=== PATIENT | male | born 1995 | race Caucasian/White ===

== ENCOUNTER 2023-04-02 10:29 | Emergency (ER) | payer SELFPAY ==
[2023-04-02 10:46] VITALS: TEMP 97.9
[2023-04-02 10:49] VITALS: O2SAT 100
[2023-04-02] MEDS ORDERED: Sodium Chloride 0.9% 1000 ML 1,000 ML IV STA (11:00)
[2023-04-02] MEDS ORDERED: Sodium Chloride 0.9% 1000 ML 1,000 ML ONE (11:05)
[2023-04-02 11:17] LABS: BASOPHIL % 0.4 % (0.0-0.4); Basophil (Absolute #) 0.02 x10^3/uL (0-0.4); Eosinophil % 0.4 % (0.00-5.0); Eosinophil (Absolute #) 0.02 x10^3/uL (0-0.5); Hematocrit 41.9 % (42-50); Hemoglobin 14.8 g/dL (12.5-18.0); IMMATURE GRAN # 0.02 x10^3u/L (0.00-0.03); IMMATURE GRAN % 0.4 % (0.00-0.4); Lymphocyte (Absolute #) 1.11 x10^3/uL (1.0-4.6); Lymphocytes % 21.2 % (24.0-44.0); Mean Corpuscular Hemoglobin 31.4 pg (26-32); Mean Corpuscular Hgb Concent. 35.3 g/dL (32-36); Mean Platelet Volume 10.2 fL (7.5-11.0); Monocyte (Absolute #) 0.47 x10^3/uL (0.0-1.3); Neutrophil % 68.6 % (36.0-66.0); Platelet Count 220 x10^3/uL (150-450); Red Blood Count 4.71 x10^6/uL (4.1-5.6); Red Cell Distribution Width 11.4 % (11.5-14.0); White Blood Count 5.2 x10^3/uL (4.0-10.5)
[2023-04-02 11:35] LABS: ALBUMIN 4.8 g/dL (3.5-5.0); ALKALINE PHOSPHATASE 40 U/L (38-126); BLOOD UREA NITROGEN 11 mg/dL (9-20); CHLORIDE 101 mmol/L (98-107); Calcium 9.3 mg/dL (8.4-10.2); Carbon Dioxide 27 mmol/L (22-30); Creatinine 1 0.81 mg/dL (0.66-1.25); EST GLOMERULAR FILTRATION RATE > 60.0 ML/MIN; Glucose 96 mg/dL (74-106); SGOT/AST 27 U/L (17-59); SGPT/ALT 19 U/L (0-50); SODIUM 139 mmol/L (137-145); Total Protein 7.5 g/dL (6.3-8.2)
--- NOTE | 2023-04-02 11:35 | XRAY ---
Indication: Syncope. Comparison: None Portable apical lordotic chest hyperinflated and clear with a few incidental tiny calcified granulomas. Heart and mediastinal structures within normal limits. Bony thorax intact. Impression: Nonacute hyperinflated chest with incidental old granulomatous disease.
--- NOTE | 2023-04-02 12:09 | ERPHSYRPT ---
- History of Present Illness Time Seen by Provider: 04/02/23 11:21 Source: patient Exam Limitations: no limitations Patient Subjective Stated Complaint: Patient was at work at [employer][1] participating in a self-defense course when he "blacked out." Patient reports that he became a bit dizzy, had some "tunnel vision" like everything was far away with ringing in his ears. Then he remembers his instructors around him trying to get him to sit down. States he didn't fall, his partner in the course kept him from falling. Triage Nursing Assessment: Patient ambulated back to ER without difficulties. He is alert and oriented. No SOB. Skin tone normal. Patient states his is a bit anxious at this time due to uncertaintly of what happened to him. He denies any pain. He also denies any current dizziness, vision changes, or nausea. Denies any recent falls or head trauma. Physician History: 28 years old healthy male presented in the ER with chief complaint of syncopal episode prior to arrival while practicing self-defense exercise at [facility]. Patient reports he started feeling dizzy lightheaded, tunnel vision, ringing in the ears immediately before he was passing out and woke up with his instructors around. It was for few seconds and patient did not hit his head as it was held by one of his friend and slowly brought him down. Patient is back to his baseline. Denies any chest pain palpitations or shortness of breath before or after this episode. Does report having similar episode many years ago. Denies any alcohol or drug use. Does not take any medications. Denies any numbness tingling or focal weakness. No difficulty speech or visual disturbance reported. Allergies/Adverse Reactions: No Known Drug Allergies Allergy (Verified 04/02/23 10:35) Home Medications: No Reportable Medications [No Reported Medications] 04/02/23 [History] Hx Tetanus, Diphtheria Vaccination/Date Given: Yes Hx Influenza Vaccination/Date Given: No Immunizations Up to Date: Yes Travel Risk - International Travel Have you traveled outside of the country in past 3 weeks: No - Coronavirus Screening Are you exhibiting any of the following symptoms?: No Close contact with a COVID-19 positive Pt in past 14-21 Days: No - Vaccine Status Have you recieved a Covid-19 vaccination: No - Review of Systems Constitutional: No Symptoms Eyes: No Symptoms Ears, Nose, & Throat: No Symptoms Respiratory: No Symptoms Cardiac: No Symptoms Abdominal/Gastrointestinal: No Symptoms Genitourinary Symptoms: No Symptoms Musculoskeletal: No Symptoms Neurological: Dizziness Psychological: No Symptoms Endocrine: No Symptoms Hematologic/Lymphatic: No Symptoms Immunological/Allergic: No Symptoms - Past Medical History Pertinent Past Medical History: Yes Musculoskeletal History: Fractures Psycho-Social History: Depression - Past Surgical History Past Surgical History: Yes Other Surgical History: PINS IN RIGHT WRIST - Social History Smoking Status: Never smoker Exposure to second hand smoke: No Drug Use: none Patient Lives Alone: No - Nursing Vital Signs Nursing Vital Signs: Initial Vital Signs Temperature 97.9 F 04/02/23 10:30 Pulse Rate 63 04/02/23 10:30 Respiratory Rate 19 04/02/23 10:30 Blood Pressure 140/104 04/02/23 10:30 O2 Sat by Pulse Oximetry 99 04/02/23 10:30 Pain Scale Pain Intensity 0 - Physical Exam General Appearance: no apparent distress, alert, anxiety Eye Exam: PERRL/EOMI, eyes nml inspection Ears, Nose, Throat Exam: normal ENT inspection, TMs normal, pharynx normal, moist mucous membranes Neck Exam: normal inspection, non-tender, supple, full range of motion, No meningismus Respiratory Exam: normal breath sounds, lungs clear, No chest tenderness Cardiovascular Exam: regular rate/rhythm, normal heart sounds Gastrointestinal/Abdomen Exam: soft, normal bowel sounds, No tenderness, No distention, No guarding Extremity Exam: normal inspection, normal range of motion Neurologic Exam: alert, oriented x 3, cooperative, barkeep II-XII nml as tested, nml cerebellar function, nml station & gait, sensation nml, No normal mood/affect (Anxious), No motor deficits, No sensory deficit, No facial droop Skin Exam: normal color SpO2 Interpretation: normal SpO2: 100 O2 Delivery: Room Air - Course EKG Interpreted by Me: RATE (64), Sinus Rhythm, NORMAL AXIS, NORMAL INTERVALS, NORMAL QRS Ordered Tests: Active Orders 24 hr Category Date Time Status CHEST 1 VIEW (PORTABLE) Stat Exams 04/02/23 11:08 Completed CBC W DIFF Stat Lab 04/02/23 11:14 Completed CMP Stat Lab 04/02/23 11:14 Completed Lactic Acid Stat Lab 04/02/23 11:07 Completed MAG [MAGNESIUM] Stat Lab 04/02/23 11:14 Completed TROPONIN Q4H Lab 04/02/23 11:14 Completed Medication Summary Discontinued Medications Generic Name Dose Route Start Last Admin Trade Name Joe PRN Reason Stop Dose Admin Sodium Chloride 1,000 mls @ 999 mls/hr 04/02/23 11:00 04/02/23 12:13 Sodium Chloride 0.9% 1000 Ml IV 04/02/23 12:00 Infused .Q1H1M STA Infusion Sodium Chloride Confirm 04/02/23 11:05 Sodium Chloride 0.9% 1000 Ml Administered 04/02/23 11:06 Dose 1,000 mls @ ud .ROUTE .STK-MED ONE Lab/Rad Data: Laboratory Result Diagrams 04/02/23 11:14 04/02/23 11:14 Laboratory Results 04/02/23 04/02/23 04/02/23 Range/Units 11:14 11:14 11:14 WBC (4.0-10.5) x10^3/uL RBC (4.1-5.6) x10^6/uL Hgb (12.5-18.0) g/dL Hct (42-50) % MCV (78-100) fL MCH (26-32) pg MCHC (32-36) g/dL RDW (11.5-14.0) % Plt Count (150-450) x10^3/uL MPV (7.5-11.0) fL Gran % (36.0-66.0) % Immature Gran % (Auto) (0.00-0.4) % Nucleat RBC Rel Count (0.00-0.1) % Eos # (Auto) (0-0.5) x10^3/uL Immature Gran # (Auto) (0.00-0.03) x10^3u/L Absolute Lymphs (auto) (1.0-4.6) x10^3/uL Absolute Monos (auto) (0.0-1.3) x10^3/uL Absolute Nucleated RBC (0.00-0.01) x10^3u/L Lymphocytes % (24.0-44.0) % Monocytes % (0.0-12.0) % Eosinophils % (0.00-5.0) % Basophils % (0.0-0.4) % Absolute Granulocytes (1.4-6.9) x10^3/uL Basophils # (0-0.4) x10^3/uL Sodium 139 (137-145) mmol/L Potassium 4.0 (3.5-5.1) mmol/L Chloride 101 (98-107) mmol/L Carbon Dioxide 27 (22-30) mmol/L Anion Gap 14.0 (5-15) MEQ/L BUN 11 (9-20) mg/dL Creatinine 0.81 (0.66-1.25) mg/dL Estimated GFR > 60.0 ML/MIN Glucose 96 (74-106) mg/dL Lactic Acid (0.4-2.0) Calcium 9.3 (8.4-10.2) mg/dL Magnesium 1.6 (1.6-2.3) mg/dL Total Bilirubin 0.80 (0.2-1.3) mg/dL AST 27 (17-59) U/L ALT 19 (0-50) U/L Alkaline Phosphatase 40 (38-126) U/L Troponin I < 0.012 (0.000-0.034) ng/mL Serum Total Protein 7.5 (6.3-8.2) g/dL Albumin 4.8 (3.5-5.0) g/dL 04/02/23 04/02/23 Range/Units 11:14 11:07 WBC 5.2 (4.0-10.5) x10^3/uL RBC 4.71 (4.1-5.6) x10^6/uL Hgb 14.8 (12.5-18.0) g/dL Hct 41.9 L (42-50) % MCV 89.0 (78-100) fL MCH 31.4 (26-32) pg MCHC 35.3 (32-36) g/dL RDW 11.4 L (11.5-14.0) % Plt Count 220 (150-450) x10^3/uL MPV 10.2 (7.5-11.0) fL Gran % 68.6 H (36.0-66.0) % Immature Gran % (Auto) 0.4 (0.00-0.4) % Nucleat RBC Rel Count 0.0 (0.00-0.1) % Eos # (Auto) 0.02 (0-0.5) x10^3/uL Immature Gran # (Auto) 0.02 (0.00-0.03) x10^3u/L Absolute Lymphs (auto) 1.11 (1.0-4.6) x10^3/uL Absolute Monos (auto) 0.47 (0.0-1.3) x10^3/uL Absolute Nucleated RBC 0.00 (0.00-0.01) x10^3u/L Lymphocytes % 21.2 L (24.0-44.0) % Monocytes % 9.0 (0.0-12.0) % Eosinophils % 0.4 (0.00-5.0) % Basophils % 0.4 (0.0-0.4) % Absolute Granulocytes 3.60 (1.4-6.9) x10^3/uL Basophils # 0.02 (0-0.4) x10^3/uL Sodium (137-145) mmol/L Potassium (3.5-5.1) mmol/L Chloride (98-107) mmol/L Carbon Dioxide (22-30) mmol/L Anion Gap (5-15) MEQ/L BUN (9-20) mg/dL Creatinine (0.66-1.25) mg/dL Estimated GFR ML/MIN Glucose (74-106) mg/dL Lactic Acid 1.0 (0.4-2.0) Calcium (8.4-10.2) mg/dL Magnesium (1.6-2.3) mg/dL Total Bilirubin (0.2-1.3) mg/dL AST (17-59) U/L ALT (0-50) U/L Alkaline Phosphatase (38-126) U/L Troponin I (0.000-0.034) ng/mL Serum Total Protein (6.3-8.2) g/dL Albumin (3.5-5.0) g/dL - Progress Progress: improved, re-examined Progress Note: 04/02/23 12:07 28 years old healthy male presented in the ER with chief complaint of syncopal episode prior to arrival while practicing self-defense exercise at [facility]. Patient reports he started feeling dizzy lightheaded, tunnel vision, ringing in the ears immediately before he was passing out and woke up with his instructors around. It was for few seconds and patient did not hit his head as it was held by one of his friend and slowly brought him down. Patient is back to his baseline. Denies any chest pain palpitations or shortness of breath before or after this episode. Does report having similar episode many years ago. Denies any alcohol or drug use. Does not take any medications. Denies any numbness tingling or focal weakness. No difficulty speech or visual disturbance reported. Patient is a nonfocal neuro exam throughout stay in the ER. Lungs bilateral clear to auscultation. EKG normal sinus rhythm with no acute ischemic changes. No arrhythmias. Negative orthostatics. Work-up is normal white count, unremarkable chemistries including troponins. Chest x-ray negative for any acute cardiopulmonary findings. No obvious neuro reason for his current epi sode. It seems more of a vasovagal while he was practicing, do not think patient needs to be admitted or any other work-up and can be discharged but will have him outpatient follow-up with his primary care and cardiology for further evaluation. Discussed signs symptoms of worsening needing return to ER which she seems understanding. Counseled pt/family regarding: lab results, diagnosis, need for follow-up, rad results Medical Desision Making - Diagnostic Testing Diagnostic test were ordered, analyzed, and reviewed by me: Yes Radiological Interpretation: Reviewed by me - Departure Departure Disposition: Home Clinical Impression: Vasovagal syncope Condition: Stable Critical Care Time: No Referrals: JEANNA LOPEZ MD [ACTIVE STAFF] - Follow up/PCP as directed (1-2 days for reevaluation) AURA JOSEPH [CONSULTING PHYSICIAN] - Follow up/PCP as directed (Call tomorrow for appointment for reevaluation) Instructions: Syncope (Fainting) (DC), Vasovagal Response (DC) Additional Instructions: Drink plenty of fluids to keep yourself well-hydrated. Follow-up with primary care and cardiology for reevaluation. Return to ER if having dizziness, lightheadedness, chest pain palpitations/shortness of breath or near syncope/syncope.
[2023-04-02 12:16] VITALS: PULSE 71; RESP 18
[2023-04-02 12:36] VITALS: BP 152/94
== END 2023-04-02 12:36 | disposition home or self-care (01) ==
LOC: ED 10:29
DX: R55 Syncope and collapse (principal); Z28.310 Unvaccinated for COVID-19
CPT/HCPCS: 36000; 36415; 71045; 80053; 83605; 83735; 84484; 85025; 93005; 93041; 96360; 99284